=== PATIENT | female | born 1935 | race Caucasian/White ===

== ENCOUNTER 2024-05-13 14:47 | Inpatient (IN) | payer MEDICARE, OTHER ==
[~2024-05-13] VITALS: Ht 152.4 cm; Wt 68.7 kg
[2024-05-13 15:20] LABS: BASOPHILS % (AUTO) 0.3 % (0.0-2.0); EOSINOPHILS % (AUTO) 0.8 % (1.0-6.0); HEMATOCRIT 26.1 % (36-46); HEMOGLOBIN 8.4 g/dL (12.0-16.0); LYMPHOCYTES # (AUTO) 2.5 K/uL (1.0-4.8); LYMPHOCYTES % (AUTO) 31.2 % (22.0-44.0); MEAN CORPUSCULAR HEMOGLOBIN 27.6 pg (26.0-34.0); MEAN CORPUSCULAR HGB CONC 32.3 G/dL (31.0-37.0); MEAN CORPUSCULAR VOLUME 85 fL (80-100); MONOCYTES # (AUTO) 0.8 K/uL (0.1-1.0); MONOCYTES % (AUTO) 9.6 % (2.0-9.0); NEUTROPHILS # (AUTO) 4.7 K/uL (1.8-7.7); NEUTROPHILS % (AUTO) 58.1 % (40.0-70.0); PLATELET COUNT (AUTO) 147 K/uL (150-450); RED BLOOD CELL COUNT(AUTO) 3.06 MIL/uL (4.00-5.20); RED CELL DISTRIBUTION WIDTH 13.3 % (11.5-14.5); WHITE BLOOD COUNT (AUTO) 8.1 K/uL (4.5-11.0)
[2024-05-13 15:29] LABS: ANION GAP 9 mmol/L (8-16); CALCIUM, TOTAL 8.5 mg/dL (8.8-10.5); CARBON DIOXIDE 22 mmol/L (22-29); CHLORIDE 104 mmol/L (98-107); CREATININE 1.51 mg/dL (0.60-1.30); GLOMERULAR FILTR. RATE CALC 33 mL/min (>60); GLUCOSE,RANDOM 189 mg/dL (70-110); POTASSIUM 5.8 mmol/L (3.5-5.1); SODIUM SERUM 135 mmol/L (136-145); UREA NITROGEN, BLOOD 30 mg/dL (7-18)
[2024-05-13 15:34] LABS: PROTHROMBIN TIME 10.7 SEC (9.4-11.6)
[2024-05-13 15:38] LABS: CREATINE KINASE, TOTAL ONLY 93 U/L (26-192); TROPONIN I-HIGH SENSITIVITY 5 ng/L (<51)
[2024-05-13 15:39] LABS: B-TYPE NATRIURETIC PEPTIDE 44 pg/mL (0-100)
[2024-05-13] MEDS ORDERED: ONDANSETRON HCL 4 MG/2 ML VIAL IVP PRN (15:45)
[2024-05-13] MEDS: SODIUM CHLORIDE 0.9% 1,900 ML IV ONE (15:50)
[2024-05-13] MEDS ORDERED: DEXTROSE 50%-WATER 25 GM/50 ML SYRINGE IVP PRN (16:00)
[2024-05-13] MEDS: CefTRIAXone 1 GM/DEXTROSE 50 ML IV ONE (16:09)
[2024-05-13] MEDS: HEPARIN SODIUM,PORCINE 5,000 UNITS/ML VIAL SQ SCH (16:13)
[2024-05-13] MEDS: SODIUM ZIRCONIUM CYCLOSILICATE 5 GM POWDER PACKET PO ONE (16:13)
[2024-05-13 16:18] LABS: THYROID STIMULATING HORMONE 1.26 uIU/mL (0.36-3.74)
[2024-05-13 16:24] LABS: LACTIC ACID 3.7 mmol/L (0.4-2.0)
[2024-05-13 17:39] LABS: APPEARANCE,URINE HAZY (CLEAR); BILIRUBIN,URINE NEGATIVE (NEGATIVE); COLOR,URINE YELLOW (YELLOW); GLUCOSE, URINE (UA) NEGATIVE (NEGATIVE); KETONES,URINE TRACE mg/dL (NEGATIVE); LEUKOCYTE ESTERASE ,URINE LARGE (NEGATIVE); NITRATE,URINE NEGATIVE (NEGATIVE); OCCULT BLOOD,URINE MODERATE (NEGATIVE); PH,URINE 5.5 (5.0-8.0); PROTEIN,URINE 100-200,SEE CONFIRM mg/dL (NEGATIVE); SPECIFIC GRAVITIY, URINE 1.024 (1.003-1.030)
[2024-05-13 17:52] LABS: BACTERIA,URINE Many /HPF (None Seen); WBC,URINE 26-50 /HPF (0-5)
[2024-05-13 17:53] LABS: SULFOSALICYLIC ACID,URINE 1+ (Negative)
[2024-05-13] MEDS: DOCUSATE SODIUM 100 MG CAPSULE PO SCH (21:00)
[2024-05-13] MEDS: SODIUM CHLORIDE 0.9% 500 ML IV ONE (23:42)
[2024-05-14] VITALS (8 sets, daily range): BP systolic 141–173; BP diastolic 74–110; PULSE 82–95; RESP 18–20; TEMP 97.8–98.7; O2SAT 96–99
[2024-05-14 01:01] LABS: GLUCOMETER DEV NAME(LOC) 5N.2C; GLUCOSE,POINT OF CARE 111 MG/DL (70-110)
[2024-05-14] MEDS: AmLODIPine BESYLATE 5 MG TABLET PO SCH (04:27)
[2024-05-14] MEDS ORDERED: AmLODIPine BESYLATE 5 MG TABLET PO SCH (05:00)
[2024-05-14] MEDS: ACETAMINOPHEN 325 MG TABLET PO PRN (06:09)
[2024-05-14] MEDS: FAMOTIDINE 20 MG TABLET PO SCH (09:12)
[2024-05-14] MEDS ORDERED: VERA240T95 PO (13:22)
[2024-05-14] MEDS ORDERED: ASPI-1227 PO (13:23)
[2024-05-14] MEDS ORDERED: FOLI0.8C PO (13:23)
[2024-05-14] MEDS ORDERED: TELM40 PO (13:23)
[2024-05-14] MEDS ORDERED: CETI-450 PO (13:23)
[2024-05-14] MEDS ORDERED: OMEP-148 PO (13:23)
[2024-05-14] MEDS ORDERED: METF-1211 PO (13:23)
[2024-05-14] MEDS ORDERED: MECO10005 PO (13:23)
[2024-05-14] MEDS ORDERED: ATOR40TA71 PO (13:23)
[2024-05-14] MEDS ORDERED: FERR324T3 PO (13:23)
[2024-05-14] MEDS ORDERED: SPIR25TA6 PO (13:23)
[2024-05-14 14:03] LABS: CREATININE 1.23 mg/dL (0.60-1.30); POTASSIUM 4.4 mmol/L (3.5-5.1)
[2024-05-14] MEDS: CefTRIAXone 1 GM/DEXTROSE 50 ML IV SCH (16:09)
[2024-05-14 17:15] LABS: GLUCOMETER DEV NAME(LOC) 5N.2C; GLUCOSE,POINT OF CARE 138 MG/DL (70-110)
[2024-05-14 17:26] LABS: GLUCOMETER DEV NAME(LOC) 5N.2C; GLUCOSE,POINT OF CARE 94 MG/DL (70-110)
[2024-05-14] MEDS: ATORVASTATIN CALCIUM 40 MG TABLET PO SCH (20:28)
[2024-05-15] VITALS: BP 160/78; PULSE 85; RESP 18; TEMP 97.9; O2SAT 94
[2024-05-15 04:00] VITALS: BP 142/80; PULSE 80; RESP 18; TEMP 98; O2SAT 94
[2024-05-15 06:53] LABS: CALCIUM, TOTAL 9.2 mg/dL (8.8-10.5); CREATININE 1.14 mg/dL (0.60-1.30); POTASSIUM 4.1 mmol/L (3.5-5.1)
[2024-05-15 07:00] LABS: BASOPHILS % (AUTO) 0.4 % (0.0-2.0); EOSINOPHILS % (AUTO) 1.8 % (1.0-6.0); LYMPHOCYTES # (AUTO) 2.2 K/uL (1.0-4.8); LYMPHOCYTES % (AUTO) 36.3 % (22.0-44.0); MEAN CORPUSCULAR HEMOGLOBIN 27.8 pg (26.0-34.0); MEAN CORPUSCULAR HGB CONC 33.3 G/dL (31.0-37.0); MEAN CORPUSCULAR VOLUME 83 fL (80-100); MONOCYTES # (AUTO) 0.8 K/uL (0.1-1.0); MONOCYTES % (AUTO) 13.7 % (2.0-9.0); NEUTROPHILS # (AUTO) 2.9 K/uL (1.8-7.7); NEUTROPHILS % (AUTO) 47.8 % (40.0-70.0); PLATELET COUNT (AUTO) 154 K/uL (150-450); RED BLOOD CELL COUNT(AUTO) 3.24 MIL/uL (4.00-5.20); RED CELL DISTRIBUTION WIDTH 13.1 % (11.5-14.5); WHITE BLOOD COUNT (AUTO) 6.2 K/uL (4.5-11.0)
[2024-05-15 08:06] LABS: GLUCOMETER DEV NAME(LOC) 5N.2C; GLUCOSE,POINT OF CARE 135 MG/DL (70-110)
[2024-05-15 08:32] VITALS: BP 158/80; PULSE 88; RESP 18; TEMP 98.4; O2SAT 96
[2024-05-15] MEDS: VERAPAMIL HCL 240 MG ER TABLET PO SCH (08:42)
[2024-05-15] MEDS: ASPIRIN 81 MG DR TABLET PO SCH (08:43)
[2024-05-15] MEDS ORDERED: LEVO-72 PO (11:55)
[2024-05-15 12:10] VITALS: BP 108/55; PULSE 69; RESP 15; TEMP 98.1; O2SAT 97
[2024-05-15] MEDS: INSULIN LISPRO 100 UNITS/ML SQ PRN (12:34)
[2024-05-15 12:35] LABS: GLUCOMETER DEV NAME(LOC) 5N.2C; GLUCOSE,POINT OF CARE 173 MG/DL (70-110)
== END 2024-05-15 15:40 | disposition home or self-care (01) | DRG 871 ==
LOC: EMS 14:47 → EDH 15:42 → 5S 05-14 00:14
PROVIDERS: ADMIT Internal Medicine; ATTEND Internal Medicine
DX: A41.9 Sepsis, unspecified organism (principal); N17.0 Acute kidney failure with tubular necrosis; N39.0 Urinary tract infection, site not specified; R65.20 Severe sepsis without septic shock; I10 Essential (primary) hypertension; E87.5 Hyperkalemia; E11.9 Type 2 diabetes mellitus without complications; E78.5 Hyperlipidemia, unspecified; Z90.49 Acquired absence of other specified parts of digestive tract; Z83.3 Family history of diabetes mellitus; Z79.899 Other long term (current) drug therapy; Z88.8 Allergy status to other drugs, medicaments and biological substances
CPT/HCPCS: 51702; 71045; 80048; 81001; 81002; 82550; 82962; 83605; 83880; 84145; 84443; 84484; 85025; 85610; 85730; 87040; 87086; 93005; 93306; 97116; 97162; 97166; 97530; 99291; G0378; J0696; J1644; J7040; 36415-L1; 36415-TC